=== PATIENT | female | born 2000 | race Caucasian/White ===

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

== ENCOUNTER 2019-01-16 19:37 | Emergency (ER) | payer MEDICAID ==
[~2019-01-16] VITALS: Ht 162.6 cm; Wt 96.6 kg
--- NOTE | 2019-01-16 19:54 | NUR ---
PT TAKEN TO BED 8
[2019-01-16 19:55] VITALS: BP 131/75
--- NOTE | 2019-01-16 20:05 | NUR ---
18 YO F BIB SELF AND MOM PRESENTS TO ED C/O 7/10 SHARP RIGHT BREAST PAIN SINCE LAST NIGHT. PT ALSO REPORTS CLEAR DISCHARGE FROM RIGHT NIPPLE AND DARK DISCOLORATION NOTED BENEATH RIGHT BREAST. PT STATES SHE HAS FAMILY HX OF BREAST CANCER AND WANTS TO BE CHECKED OUT. PT STATES HER COUSIN ON HER MOM'S SIDE HAD BREAST CANCER. PT ALSO C/O FREQUENT VAGINAL BLEEDING SINCE DISCONTINUING DEPO CONTROL IN NOVEMBER. -- PT AWAKE, ALERT, CALM, COOPERATIVE. ANSWERING QUESTIONS APPROPRIATELY. BEHAVIOR APPROPROPRIATE. APPEARS MILDLY ANXIOUS. -- SKIN PINK, WARM, DRY. BREATHING EVEN, UNLABORED. -- PMH: ASTHMA
--- NOTE | 2019-01-16 20:17 | NUR ---
Dr. Metcalf examining patient.
[2019-01-16 20:29] VITALS: BP 131/75
--- NOTE | 2019-01-16 20:29 | NUR ---
Patient discharged with v/s stable. Written and verbal after care instructions given and explained. Patient alert, oriented and verbalized understanding of instructions. Ambulatory with steady gait. All questions addressed prior to discharge. ID band removed. Patient advised to follow up with PMD. Rx of IBUPROFEN, HYDROCORTISONE given. Patient educated on indication of medication including possible reaction and side effects. Opportunity to ask questions provided and answered.
== END 2019-01-16 20:29 | disposition home or self-care (01) ==
LOC: MED 19:37
DX: N64.4 Mastodynia (principal); R21 Rash and other nonspecific skin eruption; J45.909 Unspecified asthma, uncomplicated
CPT/HCPCS: 99282

== ENCOUNTER 2020-06-09 19:31 | Emergency (ER) | payer MEDICAID ==
[~2020-06-09] VITALS: Ht 160 cm; Wt 104.3 kg
[2020-06-09 19:35] VITALS: BP 104/63
--- NOTE | 2020-06-09 19:35 | NUR ---
TO LOBBY A/W BED AMBULATORY
--- NOTE | 2020-06-09 21:57 | NUR ---
20 YO F BIB SELF WITH C/C OF GEN WEAKNESS AND BACK PAIN 8 X1DAY. PT IS 6 MOS , DENIES FEELING PROBLEMS WITH FETUS. PT STATED HER PRIMARY CLINICAL TOLD HER TO COME IN FOR A BLOOD TRANSFUSION, HGB 8.7. PT STATED BACK PAIN IS ACHING AND MAKES IT DIFFICULT FOR HER TO MOVE. PT DENIED N/V/D, FEVER, CHILLS, COUGH AND SOB. BED LOCKED IN LOWEST POSITION, SIDE RAILS X1. HX: ANEMIA RX: PRENATALS
--- NOTE | 2020-06-09 21:58 | NUR ---
DR CARTER AT BEDSIDE EVALUATING PT
--- NOTE | 2020-06-09 22:00 | NUR ---
NO NURSING INTERVENTIONS NEEDED.
--- NOTE | 2020-06-09 22:11 | NUR ---
PT AMBULATED TO RESTROOM STEADY GAIT
--- NOTE | 2020-06-09 22:13 | NUR ---
PT AMBULATED BACK TO BED 08, DR CARTER AT BEDSIDE PERFORMING ULTRASOUND
[2020-06-09 22:35] LABS: BASOPHILS % (AUTO) 0.3 % (0.0-2.0); EOSINOPHILS # (AUTO) 0.1 K/uL (0-0.4); EOSINOPHILS % (AUTO) 1.1 % (0.0-4.0); HEMATOCRIT 26.3 % (36-48); HEMOGLOBIN 8.5 g/dL (12.0-16.0); LYMPHOCYTES # (AUTO) 2.5 K/uL (2.5-16.5); LYMPHOCYTES % (AUTO) 19.4 % (20.5-51.1); MEAN CORPUSCULAR HEMOGLOBIN 23 pg (27-31); MEAN CORPUSCULAR HGB CONC 32 g/dL (33-37); MEAN CORPUSCULAR VOLUME 72.1 fL (80-94); MONOCYTES # (AUTO) 0.7 K/uL (0.8-1.0); MONOCYTES % (AUTO) 5.6 % (1.7-9.3); NEUTROPHILS # (AUTO) 9.5 K/uL (1.8-7.7); NEUTROPHILS % (AUTO) 73.6 % (42.2-75.2); PLATELET COUNT (AUTO) 303 K/uL (140-450); RED BLOOD CELL COUNT(AUTO) 3.65 MIL/uL (4.20-5.40); RED CELL DISTRIBUTION WIDTH 16.5 % (11.6-13.7); WHITE BLOOD COUNT (AUTO) 12.9 K/uL (4.8-10.8)
[2020-06-09 23:16] LABS: APPEARANCE,URINE SL CLOUDY (CLEAR); BILIRUBIN,URINE 1+ (NEGATIVE); BLOOD, URINE NEGATIVE (NEGATIVE); COLOR,URINE ORANGE (YELLOW); LEUKOCYTE ESTERASE ,URINE NEGATIVE (NEGATIVE); NITRITE, URINE NEGATIVE (NEGATIVE); UGLUCOSE NEGATIVE (NEGATIVE)
[2020-06-10 00:21] LABS: RBC,URINE 0-5 /HPF (0-5)
--- NOTE | 2020-06-10 00:24 | NUR ---
PT IS IN BED. ALL NEEDS MET AT THIS TIME. BED LOCKED IN LOWEST POSITION, SIDE RAILS X1.
[2020-06-10 00:50] VITALS: BP 118/51
--- NOTE | 2020-06-10 00:50 | NUR ---
Patient discharged with v/s stable. Written and verbal after care instructions given and explained. Patient alert, oriented and verbalized understanding of instructions. Ambulatory with to car. All questions addressed prior to discharge. ID band removed. Patient advised to follow up with PMD. Rx of MACROBID AND ANEMIA given. Patient educated on indication of medication including possible reaction and side effects. Opportunity to ask questions provided and answered.
== END 2020-06-10 00:50 | disposition home or self-care (01) ==
LOC: MED 19:31
DX: O99.012 Anemia complicating pregnancy, second trimester (principal); O98.912 Unspecified maternal infectious and parasitic disease complicating pregnancy, second trimester; R82.71 Bacteriuria; J45.909 Unspecified asthma, uncomplicated; Z3A.24 24 weeks gestation of pregnancy
CPT/HCPCS: 36415; 81001; 85025; 86886; 86900; 86901; 87086; 99283

== ENCOUNTER 2023-04-25 16:40 | Observation (INO) | payer MEDICAID ==
[~2023-04-25] VITALS: Ht 162.6 cm; Wt 95.3 kg
[2023-04-25] MEDS ORDERED: PREN-543 PO (17:16)
[2023-04-25] MEDS ORDERED: LACTATED RINGERS 1,000 ML IV SCH (17:20)
[2023-04-25] MEDS ORDERED: ONDANSETRON 4 MG/2 ML VIAL IVP PRN (17:20)
[2023-04-25] MEDS ORDERED: LACTATED RINGERS 500 ML IV SCH (17:20)
[2023-04-25] MEDS ORDERED: MORPHINE SULFATE 10 MG/ML VIAL IVP PRN (17:20)
[2023-04-25 17:43] VITALS: BP 107/58; PULSE 68; RESP 18; TEMP 97.3; O2SAT 100
== END 2023-04-25 19:30 | disposition home or self-care (01) ==
LOC: MLD 16:40
PROVIDERS: ADMIT Obstetrics & Gynecology; ATTEND Obstetrics & Gynecology
DX: O26.893 Other specified pregnancy related conditions, third trimester (principal); R10.9 Unspecified abdominal pain; O99.891 Other specified diseases and conditions complicating pregnancy; M54.9 Dorsalgia, unspecified; Z3A.37 37 weeks gestation of pregnancy
CPT/HCPCS: 81000; 96361; 96374; 96375; G0378; J2270; J2405; J7120

== ENCOUNTER 2023-10-15 23:36 | Emergency (ER) | payer MEDICAID ==
[~2023-10-15] VITALS: Ht 160 cm; Wt 86.2 kg
[~2023-10-15 23:36] MED LIST: PREN-543 PO
[2023-10-15 23:50] VITALS: BP 126/77; PULSE 102; RESP 17; TEMP 97.8; O2SAT 98
[2023-10-16] MEDS: NACL 0.9% 1,000 ML IV ONE (00:39)
[2023-10-16 00:40] LABS: BILIRUBIN,URINE NEGATIVE (NEGATIVE); BLOOD, URINE NEGATIVE (NEGATIVE); COLOR,URINE YELLOW (YELLOW); LEUKOCYTE ESTERASE ,URINE TRACE (NEGATIVE); NITRITE, URINE NEGATIVE (NEGATIVE); PROTEIN,URINE NEGATIVE (NEGATIVE); UGLUCOSE NEGATIVE (NEGATIVE)
[2023-10-16 00:44] LABS: APPEARANCE,URINE SLIGHTLY HAZY (CLEAR)
[2023-10-16] MEDS: HYDROmorphone PFS 2 MG/ML SYR IVP ONE (00:49)
[2023-10-16 00:53] LABS: RBC,URINE 0 /HPF (0-5)
[2023-10-16 00:54] LABS: BACTERIA,URINE 1+ /HPF (None Seen); MUCUS,URINE None Seen /LPF (None Seen); SQUAMOUS EPITHELIAL CELL,UR 0-3 (FEW) /LPF (0-3 (FEW)); WBC,URINE 0-5 /HPF (0-5)
[2023-10-16] MEDS ORDERED: METR-435 PO (01:11)
[2023-10-16] MEDS ORDERED: NAPR-54 PO (01:11)
== END 2023-10-16 01:15 | disposition home or self-care (01) ==
LOC: MED 23:36
DX: N75.0 Cyst of Bartholin's gland (principal); J45.909 Unspecified asthma, uncomplicated; Z79.899 Other long term (current) drug therapy
CPT/HCPCS: 56420; 81001; 87210; 96361; 96374; 99284; J1170; J7030

== ENCOUNTER 2023-11-23 02:25 | Emergency (ER) | payer MEDICAID ==
[~2023-11-23] VITALS: Ht 170.2 cm; Wt 99.8 kg
[~2023-11-23 02:25] MED LIST changes: +METR-435 PO; +NAPR-337 PO
[2023-11-23 02:46] VITALS: BP 121/66; PULSE 92; RESP 16; TEMP 97.8; O2SAT 97
[2023-11-23 04:37] VITALS: BP 122/66; PULSE 92; RESP 16; TEMP 97.2; O2SAT 97
== END 2023-11-23 04:36 | disposition home or self-care (01) ==
LOC: MED 02:25
DX: N75.1 Abscess of Bartholin's gland (principal); J45.909 Unspecified asthma, uncomplicated; Z79.899 Other long term (current) drug therapy
CPT/HCPCS: 99284

== ENCOUNTER 2023-11-25 17:04 | Emergency (ER) | payer MEDICAID ==
[~2023-11-25] VITALS: Ht 160 cm; Wt 99.8 kg
[2023-11-25 17:07] VITALS: BP 110/62; PULSE 81; RESP 18; TEMP 97.6; O2SAT 99
[2023-11-25] MEDS ORDERED: IBUP-1842 PO (18:00)
[2023-11-25] MEDS ORDERED: CEPH-588 PO (18:00)
== END 2023-11-25 18:17 | disposition home or self-care (01) ==
LOC: MED 17:04
DX: N75.0 Cyst of Bartholin's gland (principal); J45.909 Unspecified asthma, uncomplicated; Z48.00 Encounter for change or removal of nonsurgical wound dressing; Z79.899 Other long term (current) drug therapy
CPT/HCPCS: 99283

== ENCOUNTER 2024-02-05 14:02 | Emergency (ER) | payer MEDICAID ==
[~2024-02-05] VITALS: Ht 167.6 cm; Wt 106.6 kg
[~2024-02-05 14:02] MED LIST changes: +CEPH-588 PO; +IBUP-1842 PO
[2024-02-05 14:27] VITALS: BP 107/69; PULSE 86; RESP 20; TEMP 98.1; O2SAT 99
[2024-02-05] MEDS ORDERED: ACYC400T14 PO (15:48)
== END 2024-02-05 16:06 | disposition home or self-care (01) ==
LOC: MED 14:02
DX: B00.1 Herpesviral vesicular dermatitis (principal); J45.909 Unspecified asthma, uncomplicated; F17.210 Nicotine dependence, cigarettes, uncomplicated; Z79.899 Other long term (current) drug therapy
CPT/HCPCS: 36415; 81025; 87491; 87529; 99283

== ENCOUNTER 2024-02-10 09:59 | Emergency (ER) | payer MEDICAID ==
[~2024-02-10] VITALS: Ht 160 cm; Wt 109.8 kg
[~2024-02-10 09:59] MED LIST changes: +ACYC400T14 PO
[2024-02-10 10:08] VITALS: BP 112/61; PULSE 67; RESP 18; TEMP 97.6; O2SAT 98
[2024-02-10 11:23] VITALS: BP 112/61; PULSE 67; RESP 18; TEMP 97.6; O2SAT 98
[2024-02-10] MEDS: LIDOCAINE MPF 1% 10 MG/ML VIAL INJ ONE (11:23)
== END 2024-02-10 11:26 | disposition home or self-care (01) ==
LOC: MED 09:59
DX: N76.4 Abscess of vulva (principal); J45.909 Unspecified asthma, uncomplicated; Z79.1 Long term (current) use of non-steroidal anti-inflammatories (NSAID); Z79.899 Other long term (current) drug therapy
CPT/HCPCS: 56405; 99284; J2001